=== PATIENT | female | born 1930 | race African-American/Black ===

== ENCOUNTER → 2018-08-02 | Outpatient (CLI) | payer MEDICARE, BC ==
--- NOTE | 2018-08-02 18:22 | PCVCIMAG ---
EXAM: BILATERAL LOWER EXTREMITY ARTERIAL DUPLEX INDICATION: Peripheral Arterial Disease. Leg pain. FINDINGS: Right Leg: Common femoral profunda femoral arteries are patent. Segmental occlusion distal [place] superficial femoral artery. Popliteal artery is patent. The anterior tibial and posterior tibial arteries are occluded. Peroneal artery is patent. Left Leg: Common femoral profunda arteries are patent. Increased systolic velocity 336 cm/s from 100 cm/s distal [place] superficial femoral artery consistent with 90% stenosis. Popliteal artery is patent. Anterior tibial and posterior tibial arteries are occluded. Peroneal artery is patent. 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 90% stenosis distal [place] left superficial femoral artery. 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 LOC:[id number]
--- NOTE | 2018-08-02 18:25 | PCVCIMAG ---
EXAM: NONINVASIVE ARTERIAL EXAMINATION OF BOTH LOWER EXTREMITIES INCLUDING PRE AND POST EXERCISE PRESSURE MEASUREMENTS AND DOPPLER WAVEFORMS INDICATION: Peripheral Arterial Disease. Leg pain. FINDINGS: Right Brachial: 145 mm Hg. Right Dorsalis Pedis: 0 mm Hg. Right Posterior Tibial: 56 mm Hg. Right WALTER = 0.39. Left Brachial: 135 mm Hg. Left Dorsalis Pedis: 75 mm Hg. Left Posterior Tibial: 0 mm Hg. Left WALTER = 0.52. Post Exercise: Right Brachial 141 mm Hg. Right Posterior Tibial: 84 mm Hg. Left Dorsalis Pedis: 62 mm Hg. Right WALTER = 0.60. Left WALTER = 0.44. IMPRESSION: Moderately severe resting ischemia in the right lower extremity. Moderate exercise induced ischemia in the right lower extremity. Moderate resting ischemia in the left lower extremity. Moderately severe exercise induced ischemia in the left lower extremity. LOC:[id number]
== END | disposition home or self-care (01) ==
LOC: PCVCIMAG 12:59
PROVIDERS: ATTEND Nuclear Medicine Nuclear Cardiology
DX: I73.9 Peripheral vascular disease, unspecified (principal)
CPT/HCPCS: 93924; 93925

== ENCOUNTER → 2018-08-09 | Outpatient (CLI) | payer MEDICARE, BC | END | disposition home or self-care (01) | LOC: PCVCCLINIC 11:00 | PROVIDERS: ATTEND Nuclear Medicine Nuclear Cardiology | DX: I73.9 Peripheral vascular disease, unspecified (principal); I10 Essential (primary) hypertension; M05.79 Rheumatoid arthritis with rheumatoid factor of multiple sites without organ or systems involvement; E78.00 Pure hypercholesterolemia, unspecified; M79.604 Pain in right leg; M79.605 Pain in left leg; Z87.891 Personal history of nicotine dependence; Z79.82 Long term (current) use of aspirin | CPT/HCPCS: G0463 ==

== ENCOUNTER → 2018-09-20 | Outpatient (CLI) | payer MEDICARE, BC ==
--- NOTE | 2018-09-20 11:53 | PCVCIMAG ---
EXAM: RIGHT LOWER EXTREMITY ARTERIAL DUPLEX INDICATION: Peripheral Arterial Disease. Leg pain. FINDINGS: Right Leg: Common femoral and profunda femoral arteries are patent. Heavily calcified segmental occlusion distal superficial femoral artery results in severely blunted arterial waveforms in the popliteal artery. Occlusion of the anterior tibial and posterior tibial arteries. Blunted arterial waveforms throughout the peroneal artery are identified. IMPRESSION: Unchanged heavily calcified segmental occlusion distal right superficial femoral artery. Unchanged occlusion of the right anterior and posterior tibial arteries. LOC:[id number]
== END | disposition home or self-care (01) ==
LOC: PCVCIMAG 10:26
PROVIDERS: ATTEND Nuclear Medicine Nuclear Cardiology
DX: I70.201 Unspecified atherosclerosis of native arteries of extremities, right leg (principal); I10 Essential (primary) hypertension; M05.79 Rheumatoid arthritis with rheumatoid factor of multiple sites without organ or systems involvement; E78.00 Pure hypercholesterolemia, unspecified; Z87.891 Personal history of nicotine dependence
CPT/HCPCS: 93926; G0463